=== PATIENT | male | born 1945 | race Two or more races ===

== ENCOUNTER 2019-03-17 22:18 | Emergency (ER) ==
[~2019-03-17] VITALS: Ht 167.6 cm; Wt 79.4 kg
[2019-03-17 22:33] VITALS: BP 143/114
== END 2019-03-17 23:27 | disposition home or self-care (01) ==
LOC: ER 22:22
DX: J37.0 Chronic laryngitis (principal); R09.89 Other specified symptoms and signs involving the circulatory and respiratory systems; I10 Essential (primary) hypertension; E78.5 Hyperlipidemia, unspecified; I25.10 Atherosclerotic heart disease of native coronary artery without angina pectoris; I25.2 Old myocardial infarction; E11.9 Type 2 diabetes mellitus without complications; Z95.0 Presence of cardiac pacemaker; Z95.818 Presence of other cardiac implants and grafts